=== PATIENT | female | born 1930 | race Caucasian/White ===

== ENCOUNTER → 2016-05-14 | Outpatient (CLI) | payer MEDICARE | LOC: GMA 19:26 | PROVIDERS: ATTEND Nurse Practitioner Acute Care | DX: N30.00 Acute cystitis without hematuria (principal) ==

== ENCOUNTER → 2016-09-03 | Outpatient (CLI) | payer MEDICARE ==
--- NOTE | 2016-09-03 13:49 | MAM ---
EXAM DESCRIPTION: Diagnostic Mammo,Bilateral CLINICAL HISTORY: 85 years, Female, palpable abnormality on the right. Patient states that the palpable abnormality recently decreased in prominence. COMPARISON: January 01, 2012 TECHNIQUE: CC and MLO digital mammograms with computer aided detection. FINDINGS: There are scattered fibroglandular densities. There is no dominant mass nor any suspicious microcalcifications. Benign microcalcifications are present. On the previous right mammogram there is a large lobulated finding which represented a cyst which was subsequently aspirated. There is no return of the cyst at this time. IMPRESSION: BI-RADS 2: BENIGN FOLLOW-UP: Routine mammography screening. Electronically signed by: Omer Nguyễn MD 09/03/2016 1:48 PM CDT
== END | disposition home or self-care (01) ==
LOC: MAMMO 09:52
PROVIDERS: ATTEND Family Medicine
DX: N63 Unspecified lump in breast (principal)

== ENCOUNTER → 2016-10-01 | Outpatient (CLI) | payer MEDICARE | END | disposition home or self-care (01) | LOC: GMAM 13:53 | PROVIDERS: ATTEND Family Medicine | DX: N30.00 Acute cystitis without hematuria (principal); I10 Essential (primary) hypertension; E04.9 Nontoxic goiter, unspecified ==

== ENCOUNTER → 2017-03-22 | Outpatient (CLI) | payer MEDICARE | END | disposition home or self-care (01) | LOC: GMAM 12:43 | PROVIDERS: ATTEND Family Medicine | DX: E04.9 Nontoxic goiter, unspecified (principal) ==

== ENCOUNTER → 2017-04-19 | Outpatient (CLI) | payer MEDICARE | END | disposition home or self-care (01) | LOC: GMAM 12:28 | PROVIDERS: ATTEND Family Medicine | DX: E83.51 Hypocalcemia (principal); E55.9 Vitamin D deficiency, unspecified ==

== ENCOUNTER → 2017-10-28 | Outpatient (CLI) | payer MEDICARE | LOC: GMAM 13:25 | PROVIDERS: ATTEND Family Medicine | DX: E04.9 Nontoxic goiter, unspecified (principal) ==

== ENCOUNTER → 2017-11-01 | Outpatient (CLI) | payer MEDICARE ==
--- NOTE | 2017-11-01 14:18 | US ---
THYROID ULTRASOUND CLINICAL INFORMATION: Thyroid nodule TECHNIQUE: Thyroid sonography was performed. COMPARISON: None FINDINGS: Thyroid size: Right thyroid lobe measures 3.5 x 1.3 x 1.7 cm. The left thyroid lobe measures 3.5 x 0.9 x 1.4 cm. Texture: Normal hyperechoic thyroid tissue is seen surrounding multiple nodules. Estimated total number of nodules >/=1 cm: 1 Right thyroid isthmus measures 2.7 mm. No anterior cervical adenopathy. Nodules Right lobe Hypoechoic nodule in the inferior right thyroid lobe is sonographically solid and measures 1.6 x 1.2 x 1 cm. Fine-needle aspiration biopsy with ultrasound guidance is recommended for a nodule of this size. Small nodule in the lower pole of the right thyroid lobe measures 5 mm. Left lobe In the lower left thyroid lobe, a small nodule measures 0.6 x 0.4 x 0.6 cm. This appears benign and can be followed. IMPRESSION: Dominant nodule in the inferior right thyroid lobe measuring 1.6 cm in greatest dimension. Sono guided fine-needle aspiration biopsy is recommended. Electronically signed by: John Troncoso MD 11/01/2017 2:16 PM CDT
== END ==
LOC: US 10:00
PROVIDERS: ATTEND Family Medicine
DX: E04.9 Nontoxic goiter, unspecified (principal)

== ENCOUNTER → 2017-11-07 | Outpatient (CLI) | payer MEDICARE ==
--- NOTE | 2017-11-07 20:37 | US ---
Thyroid Ultrasound Biopsy CLINICAL INFORMATION: Right ultrasound nodule on prior ultrasound 11/01/2017. TECHNIQUE: Procedure was explained to the patient with risks and benefits. The patient gave verbal and written consent. Sterile preparation draping. 1% xylocaine dermal anesthetic 9-1 mixture with sodium bicarbonate. Sterile ultrasound guidance. A total of 6 passes into right thyroid nodule; 3 needle samplings with a separate 1.5 inch, 25-gauge needle per sample, and 3 aspirations, with a separate 1.5 inch, 25-gauge needle/10-cc syringe set, per aspiration. Each sample was placed on a separate slide and fixed in 95% alcohol container. Saccomanno fluid drawn into aspirate needle and rinse injected into Saccomanno container. Specimens to be sent for pathologic examination at remote facility. . Patient tolerated procedure well. Biopsy #: 1 Nodule reference number based on prior diagnostic ultrasound:1 Maximum size: 1.6 cm Location: right; lower ACR TI-RADS risk category: TR4 (4-6 points) Reason for biopsy: meets other recommendations but not ACR TI-RADS Complications: None IMPRESSION: Successful ultrasound guided fine needle aspiration of thyroid nodule. Very minimal fluid or bleeding in the samples. Samples and aspirations taken to remote facility with pathologic results pending. Electronically signed by: Jonathan Lopez MD 11/07/2017 8:36 PM CDT
== END ==
LOC: US 09:00
PROVIDERS: ATTEND Family Medicine
DX: E04.9 Nontoxic goiter, unspecified (principal)

== ENCOUNTER → 2017-11-25 | Outpatient (CLI) | payer MEDICARE | LOC: GMAM 14:25 | PROVIDERS: ATTEND Family Medicine | DX: N30.00 Acute cystitis without hematuria (principal) ==

== ENCOUNTER → 2018-05-27 | Outpatient (CLI) | payer MEDICARE | LOC: GMAM 14:46 | PROVIDERS: ATTEND Family Medicine | DX: E04.9 Nontoxic goiter, unspecified (principal); E55.9 Vitamin D deficiency, unspecified ==

== ENCOUNTER 2018-07-04 14:28 | Emergency (ER) | payer MEDICARE ==
[2018-07-04] MEDS ORDERED: ASPIRIN (CHEWABLE) 81 MG TAB PO ONE (14:58)
--- NOTE | 2018-07-04 15:17 | RAD ---
EXAM DESCRIPTION: Chest,1 View CLINICAL HISTORY: 87 years Female, left arm pain COMPARISON: 05/04/2010 IMPRESSION: The heart is enlarged, with mild central pulmonary vascular congestion. Severe atherosclerosis in the thoracic aorta. The lungs are hyperexpanded. Mild perihilar interstitial thickening, which may be secondary to CHF with interstitial edema, fibrosis/scarring, versus an atypical infectious/inflammatory process. No confluent airspace consolidation, pleural effusion, or pneumothorax. No acute osseous abnormality. Vascular stent in the right axillary region. Electronically signed by: Jair De La Torre MD 07/04/2018 3:14 PM CDT
--- NOTE | 2018-07-04 15:28 | ED.PDOC ---
History of Present Illness - General Chief Complaint: General Time Seen by Provider: 07/04/18 14:49 Source: patient Exam Limitations: no limitations - History of Present Illness Initial Comments: Patient presents with left upper arm pain for two days. It is intermittent, aching in nature, worse with movement, disappears when held in a 90 degree flexion of the forearm, no previous episodes in the left arm She says that she had 3 stents in the right arm due to peripheral vascular disease. She denies any cardiac history. However, she is unsure about her medications and diagnosisis. No dyspnea/diaphoresis/chest pain No other complaints. Timing/Duration: 24 hours Severity: mild Improving Factors: rest Worsening Factors: movement Associated Symptoms: denies symptoms Allergies/Adverse Reactions: Allergies Sulfa Drugs Allergy (Verified 12/17/15 17:15) Home Medications: Ambulatory Orders Amlodipine Besylate [Norvasc] 10 mg PO DAILY 10/28/13 Travoprost [Travatan Z] 1 drop BOTH_EYES DAILY 10/28/13 Aspirin [Aspirin Adult Low Dose] 81 mg PO DAILY 12/17/15 Potassium Chloride [Micro-K] 8 meq PO DAILYBK 12/17/15 Amoxicillin [Amoxil] 500 mg PO TID PRN 07/04/18 Benzonatate Perles [Tessalon Perles] 200 mg PO Q6HR PRN 07/04/18 Fluticasone Prop 0.05% Nasal [Flonase Nasal Ney] 1 spray MASSIMO DAILY PRN 07/04/18 Losartan Potassium 100 mg PO DAILY 07/04/18 Multiple Vitamins W/ Minerals [Ocuvite Adult 50+] 1 cap PO DAILY 07/04/18 Nebivolol HCl [Bystolic] 5 mg PO DAILY 07/04/18 Promethazine W/Codeine Syr [Phenergan With Codeine Syrup] 5 ml PO Q6HR PRN 07/04/18 Rosuvastatin Calcium [Crestor] 10 mg PO DAILY 07/04/18 Review of Systems - Review of Systems Constitutional: States: no symptoms reported EENTM: States: no symptoms reported Respiratory: States: no symptoms reported Cardiology: States: no symptoms reported Gastrointestinal/Abdominal: States: no symptoms reported Genitourinary: States: no symptoms reported Musculoskeletal: States: see HPI Skin: States: no symptoms reported Neurological: States: no symptoms reported Endocrine: States: no symptoms reported Hematologic/Lymphatic: States: no symptoms reported Past Medical History (General) - Patient Medical History Hx Seizures: No Hx Asthma: No Hx of COPD: No Hx Cardiac Disorders: Yes Hx Congestive Heart Failure: No Hx Pacemaker: No Hx Hypertension: Yes Hx Diabetes: No Hx Cancer: No Hx of HIV: No Hx Hepatitis C: No Hx MRSA: No - Vaccination History Hx Tetanus, Diphtheria Vaccination: Yes Hx Influenza Vaccination: Yes Hx Pneumococcal Vaccination: Yes - Social History Hx Tobacco Use: No Hx Chewing Tobacco Use: No Hx Alcohol Use: No Hx Substance Use: No Hx Substance Use Treatment: No Hx Depression: No Hx Physical Abuse: No Hx Emotional Abuse: No Hx Suspected Abuse: No - Female History Patient : No Family Medical History - Family History Father Living Status: Age at (years of age): 50 Cause of : cancer Mother Family History: Unknown Physical Exam - Physical Exam General Appearance: Alert Eye Exam: bilateral normal Ears, Nose, Throat: normal ENT inspection Neck: non-tender, full range of motion, supple Respiratory: lungs clear, normal breath sounds Cardiovascular/Chest: normal peripheral pulses, regular rate, rhythm Gastrointestinal/Abdominal: normal bowel sounds, non tender, soft Extremity: normal range of motion, non-tender, normal inspection, other - Full sensation in entire left UE. Brachial and radial pulses on the left UE are 2+. There is full sensation throughout the entire LUE. Capillary refill is less than 2 seconds at the nailbeds. 5/5 strength to AROM in the left shoulder, elbow, wrist, hand, and fingers. Neurologic: no motor/sensory deficits, alert, normal mood/affect, oriented x 3 Skin Exam: normal color Lymphatic: no adenopathy Progress - Progress Progress: 07/04/18 16:40 Laboratory Tests 07/04/18 07/04/18 07/04/18 15:20 15:20 15:20 WBC 6.6 RBC 4.82 Hgb 14.1 Hct 42.2 MCV 87.6 MCH 29.2 MCHC 33.4 RDW 14.5 Plt Count 154 MPV 10.8 H Absolute Neuts (auto) 4.50 Absolute Lymphs (auto) 1.40 Absolute Monos (auto) 0.60 Absolute Eos (auto) 0.10 Absolute Basos (auto) 0.10 Neutrophils % 68.4 Lymphocytes % 21.1 Monocytes % 8.8 Eosinophils % 0.9 L Basophils % 0.8 PT 10.7 INR 1.07 PTT (SP) 28.4 Sodium 140 Potassium 3.8 Chloride 103 Carbon Dioxide 29 Anion Gap 11.8 L BUN 18 Creatinine 0.86 BUN/Creatinine Ratio 20.9 H Random Glucose 112 H Serum Osmolality 282.1 Calcium 9.4 Total Bilirubin 0.9 AST 21 ALT 15 Alkaline Phosphatase 104 Creatine Kinase 42 CK-MB (CK-2) 1.3 CK-MB (CK-2) % Not Reportable Troponin I < 0.02 B-Natriuretic Peptide 250.0 H* Serum Total Protein 7.0 Albumin 4.2 Globulin 2.8 Albumin/Globulin Ratio 1.5 No laboratory explanation for the patient's symptoms. Radiographs of the left shoulder and humerus were negative. Circulation was intact in the entire LUE. Care instructions given. E.R. warnings given. Questions were elicited and answered. Patient voiced understanding and agreement with the plan 07/04/18 17:24 Departure - Departure Clinical Impression: Arm pain, left Disposition: Discharge to Home or Self Care Condition: Good Departure Forms: ED Discharge - Pt. Copy, Patient Portal Self Enrollment Diet: resume usual diet Activity: increase activity as tolerated Referrals: Edwin Camp MD [Primary Care Provider] - 1-2 Weeks Home Medications: Ambulatory Orders Amlodipine Besylate [Norvasc] 10 mg PO DAILY 10/28/13 Travoprost [Travatan Z] 1 drop BOTH_EYES DAILY 10/28/13 Aspirin [Aspirin Adult Low Dose] 81 mg PO DAILY 12/17/15 Potassium Chloride [Micro-K] 8 meq PO DAILYBK 12/17/15 Amoxicillin [Amoxil] 500 mg PO TID PRN 07/04/18 Benzonatate Perles [Tessalon Perles] 200 mg PO Q6HR PRN 07/04/18 Fluticasone Prop 0.05% Nasal [Flonase Nasal Ney] 1 spray MASSIMO DAILY PRN 0 07/04/18 Losartan Potassium 100 mg PO DAILY 07/04/18 Multiple Vitamins W/ Minerals [Ocuvite Adult 50+] 1 cap PO DAILY 07/04/18 Nebivolol HCl [Bystolic] 5 mg PO DAILY 07/04/18 Promethazine W/Codeine Syr [Phenergan With Codeine Syrup] 5 ml PO Q6HR PRN 07/04/18 Rosuvastatin Calcium [Crestor] 10 mg PO DAILY 07/04/18 Additional Instructions: Apply heat to the left upper arm twice per day for two weeks. If pain does not resolve, see your regular doctor for further evaluation. Return to the E.R. for paleness in the left arm, loss of feeling, loss of movement, or worsening pain.
--- NOTE | 2018-07-04 17:22 | RAD ---
EXAM: Humerus,Left (accession [id number]), Shoulder,Left 2 or More Views (accession [id number]) CLINICAL INDICATION: Left shoulder pain, left humerus pain COMPARISON: There is no previous study for comparison. FINDINGS: Two views of the left shoulder and two views of the left humerus demonstrate no fracture or dislocation. The AC joint is unremarkable. The visualized portion of the lung apex is clear. IMPRESSION: Negative left shoulder and left humerus radiographs. Electronically signed by: J Luis Amaral MD 07/04/2018 5:19 PM CDT
--- NOTE | 2018-07-04 17:22 | RAD ---
EXAM: Humerus,Left (accession [id number]), Shoulder,Left 2 or More Views (accession [id number]) CLINICAL INDICATION: Left shoulder pain, left humerus pain COMPARISON: There is no previous study for comparison. FINDINGS: Two views of the left shoulder and two views of the left humerus demonstrate no fracture or dislocation. The AC joint is unremarkable. The visualized portion of the lung apex is clear. IMPRESSION: Negative left shoulder and left humerus radiographs. Electronically signed by: J Luis Amaral MD 07/04/2018 5:19 PM CDT
[2018-07-04 17:54] VITALS: BP 122/78; TEMP 97.1; O2SAT 99
== END 2018-07-04 16:50 | disposition home or self-care (01) ==
LOC: ER 14:28
DX: M79.622 Pain in left upper arm (principal); I51.9 Heart disease, unspecified; I10 Essential (primary) hypertension; Z95.828 Presence of other vascular implants and grafts; Z79.899 Other long term (current) drug therapy; Z79.82 Long term (current) use of aspirin; Z88.2 Allergy status to sulfonamides

== ENCOUNTER → 2018-12-01 | Outpatient (CLI) | payer MEDICARE | LOC: GMAM 10:46 | PROVIDERS: ATTEND Family Medicine | DX: E04.9 Nontoxic goiter, unspecified (principal); E55.9 Vitamin D deficiency, unspecified; I10 Essential (primary) hypertension ==

== ENCOUNTER → 2019-06-03 | Outpatient (CLI) | payer MEDICARE ==
--- NOTE | 2019-06-04 14:44 | US ---
EXAM DESCRIPTION: Extremity,Upper RT Arteries: ULTRASOUND. CLINICAL HISTORY: 88 years Female ATHEROSCLEROSIS OF ARTERIES. Evaluate right upper extremity arterial graft. COMPARISON: None Available. TECHNIQUE: Transcutaneous scanning: Shafer-scale and Doppler modes. IMPRESSION: Color Doppler and arterial waveform evaluation of the proximal and distal right arterial graft show no flow or waveform abnormalities. Slightly elevated velocity in the distal right brachial artery. Electronically signed by: Jonathan Lopez MD 06/04/2019 2:43 PM [employer]EF[employer]IST
== END ==
LOC: US 10:30
PROVIDERS: ATTEND Internal Medicine Cardiovascular Disease
DX: I70.209 Unspecified atherosclerosis of native arteries of extremities, unspecified extremity (principal)

== ENCOUNTER → 2020-01-05 | Outpatient (CLI) | payer MEDICARE | LOC: GMAM 10:28 | PROVIDERS: ATTEND Family Medicine | DX: E04.9 Nontoxic goiter, unspecified (principal); I10 Essential (primary) hypertension; E55.9 Vitamin D deficiency, unspecified ==